=== PATIENT | female | born 1990 | race American Indian/Alaskan Native ===

== ENCOUNTER 2018-10-20 21:33 | Emergency (ER) | payer BC ==
[2018-10-20 21:56] VITALS: O2SAT 99
[2018-10-20] MEDS ORDERED: Epinephrine /Lidocaine HCL 1:100,000/2% 30 ml INJ STA (21:58)
[2018-10-20] MEDS ORDERED: Lidocaine 2% w Epi 1:100,000 Inj IJ ONE (22:03)
[2018-10-20] MEDS ORDERED: Bacitracin 500 Units/gm Oint Foilpak UD TOP ONE (22:33)
[2018-10-20] MEDS ORDERED: Bacitracin 500 Units/gm Oint Foilpak UD ONE (22:36)
--- NOTE | 2018-10-20 22:39 | C.PDOC ---
History Of Present Illness Patient c/o face laceration after she was accidentally hit with a toy by her 6 yo nephew. Patient sts she is UTD with her Tetanus immunization. Time Seen by Provider: 10/20/18 21:49 Chief Complaint (Nursing): Abnormal Skin Integrity History Per: Patient History/Exam Limitations: clinical condition Onset/Duration Of Symptoms: Sudden Onset, Other (TRIAGE NURSE) Current Symptoms Are (Timing): Still Present Location Of Injury: Right: Face Quality Of Symptoms: Painful Severity: Moderate Past Medical History Reviewed: Historical Data, Nursing Documentation, Vital Signs Vital Signs: Last Vital Signs Temp 99 F 10/20/18 21:40 Pulse 80 10/20/18 21:40 Resp 18 10/20/18 21:40 BP 158/99 H 10/20/18 21:40 Pulse Ox 99 10/20/18 21:40 Family History: States: No Known Family Hx - Social History Hx Tobacco Use: No Hx Alcohol Use: No Hx Substance Use: No - Immunization History Hx Tetanus Toxoid Vaccination: Yes Hx Influenza Vaccination: Yes Hx Pneumococcal Vaccination: No Review Of Systems Except As Marked, All Systems Reviewed And Found Negative. Physical Exam - Physical Exam Appears: Well, Non-toxic, No Acute Distress Skin: Normal Color, Dry, No Rash, Other (irregularly shaped (Z-shaped) laceration 3 cm on the right side of face below lower lip) Head: Atraumatic, Normacephalic Eye(s): bilateral: Normal Inspection, PERRL, EOMI Nose: Normal, No Deformity, No Tenderness Oral Mucosa: Other (right lower inner lip with irregularly shaped laceration, not through and through, no active bleeding) ED Course And Treatment O2 Sat by Pulse Oximetry: 99 Procedure: Wound Repair - Time Out Time Out: Side verified - Consent Obtained Consent obtained: Written - Performed by Performed by: Mid-level Provider - Indications Indication(s):: Laceration - Location Location:: Right, Face Dimensions Length cm: 3 Dimensions width cm: 0.3 Depth:: Epidermis - Anesthetic Technique Local/Regional Anesthetic:: Lidocaine 1% w/epi - Irrigated Irrigated with ml of normal saline: 250 - Complexity Complexity:: Simple (one layer) - Wound repair method Sutures:: # (7), Size (5-0), Type (Tylon), Technique (interrupted) - Muscle repiar layer closed with Muscle repair layer closed with:: Abx ointment applied, Tetanus up to date Disposition - Disposition Referrals: Sara Cherry MD [Staff Provider] - Disposition: HOME/ ROUTINE Disposition Time: 22:38 Condition: STABLE Additional Instructions: Follow up with PMD within 1-2 days. Follow up with data review specialist. Suture removal in 7-8 days. Return to ED if feel worse. Prescriptions: Cephalexin [Keflex] 500 mg PO Q6 #20 cap Instructions: Laceration Repair With Stitches (DC) Forms: [email or web address] (Congolese), Work Excuse - Clinical Impression Clinical Impression: Facial laceration
[2018-10-20 22:50] VITALS: BP 144/72; PULSE 86; RESP 20; TEMP 98
== END 2018-10-20 22:50 | disposition home or self-care (01) ==
LOC: SUPCPDRO 21:33 → C.ER 21:33
DX: S01.81XA Laceration without foreign body of other part of head, initial encounter (principal); W22.8XXA Striking against or struck by other objects, initial encounter